=== PATIENT | female | born 1960 | race Two or more races ===

== ENCOUNTER 2024-05-20 22:49 | Emergency (ER) | payer OTHER, BC ==
[2024-05-20 22:59] VITALS: BP 158/84; PULSE 96; RESP 20; TEMP 100.2; BMI 30.1
[2024-05-20 23:58] LABS: BASO % 1.1 % (0-2.0); EOS % 3.4 % (0-4.5); HEMATOCRIT 34.8 % (32.4-45.2); HEMOGLOBIN 11.4 GM/dL (10.7-15.3); LYMPH % 31.2 % (8-40); MCH 26.3 pg (25.7-33.7); MCHC 32.7 g/dl (32.0-36.0); MEAN CELL VOLUME 80.5 fl (80-96); MEAN PLT VOLUME 7.7 fl (7.5-11.1); NEUT % 52.3 % (42.8-82.8); PLATELET COUNT 242 10^3/uL (134-434); RBC 4.32 M/mm3 (3.60-5.2); RDW 15.3 % (11.6-15.6); WHITE BLOOD COUNT 5.8 K/mm3 (4.0-10.0)
[2024-05-20] MEDS ORDERED: ACETAMINOPHEN 500 MG TABLET (FP) ONE (23:58)
[2024-05-21] MEDS: ACETAMINOPHEN 500 MG TABLET (FP) PO ONE (00:05)
[2024-05-21] MEDS: LACTATED RINGERS SOLUTION 1000 ML INFUS.BAG IV ONE (00:14)
[2024-05-21 00:19] LABS: POTASSIUM 4.1 mmol/L (3.5-5.1)
[2024-05-21 00:20] LABS: ALBUMIN 3.4 g/dl (3.4-5.0)
[2024-05-21 00:23] LABS: BILIRUBIN,DIRECT < 0.1 mg/dL (0.0-0.2); CALCIUM 8.9 mg/dL (8.5-10.1); SGOT/AST 19 U/L (15-37); SGPT/ALT 18 U/L (13-61)
[2024-05-21 00:25] LABS: BLOOD UREA NITROGEN 14.3 mg/dL (7-18)
[2024-05-21 00:26] LABS: BILIRUBIN,TOTAL 0.1 mg/dL (0.2-1)
[2024-05-21 00:27] LABS: ALK PHOS 64 U/L (45-117); CREATININE 0.8 mg/dL (0.55-1.3)
[2024-05-21 00:32] LABS: N-TERMINAL BNP 382.2 pg/ml (5-125)
[2024-05-21] MEDS ORDERED: ALBUTEROL SO4 HFA INHALER IH ONE (01:17)
[2024-05-21] MEDS: ALBUTEROL SO4 HFA INHALER IH ONE (01:46)
== END 2024-05-21 01:55 | disposition home or self-care (01) ==
LOC: JER 22:49
PROC: 3E0F7GC Introduction of Other Therapeutic Substance into Respiratory Tract, Via Natural or Artificial Opening (ICD-10-PCS; principal; 2024-05-20)
DX: R07.9 Chest pain, unspecified (principal); R11.0 Nausea; R61 Generalized hyperhidrosis; R09.81 Nasal congestion; R50.9 Fever, unspecified; R05.9 Cough, unspecified; Z20.822 Contact with and (suspected) exposure to COVID-19
CPT/HCPCS: 0241U-QW; 36415; 71046-TC-FY; 80048; 80076; 83690; 83880; 84484; 85025; 93005; 93010; 99285-25